=== PATIENT | male | born 1945 | race Caucasian/White ===

== ENCOUNTER 2018-09-05 09:08 | Day surgery (SDC) | payer MEDICARE, OTHER ==
[~2018-09-05 09:08] MED LIST: Buffered Lidocaine 0.9% SYRIN* 5 ML/SYR SYRINGE INTRADERM ONE; Dexamethasone TAB* 4 MG PO ONE; DiMENhydriNATE IV* 50 MG/ML VIAL IV PUSH PRN; Famotidine TAB* 20 MG PO ONE; Morphine VIAL* 4 MG/ML VIAL (1 ml vial) IV PRN; Naloxone* 0.4 MG/ML 1 ML VIAL IV PRN; Ondansetron TAB* 4 MG PO ONE; PROCHLORPERAZINE INJ 5 MG/ML 2 ML VIAL IV PRN; fentaNYL* 50 MCG/ML 2 ML VIAL (100 MCG VIAL) IV PRN
[2018-09-05] MEDS ORDERED: Ondansetron ODT TAB* 4 MG ONE (09:48)
[2018-09-05] MEDS ORDERED: Dexamethasone TAB* 4 MG ONE ×2 (09:48→09:54)
[2018-09-05] MEDS ORDERED: ceFAZolin 2 GM PREMIX in ORs 2 GM/50 ML BAG IVPB ONE (09:49)
[2018-09-05] MEDS ORDERED: Famotidine TAB* 20 MG ONE (09:49)
[2018-09-05] MEDS ORDERED: EPINEPHRINE 1 MG/ML 1 ML VIAL ONE (09:58)
[2018-09-05] MEDS ORDERED: Bupivacaine 0.25% EPI 200,000* 30 ML SDV ONE (09:58)
[2018-09-05] MEDS ORDERED: fentaNYL* 50 MCG/ML 2 ML VIAL (100 MCG VIAL) ONE ×3 (10:09→14:14)
[2018-09-05] MEDS ORDERED: KETAMINE HCL* 50 MG/ML 10 ML VIAL ONE (10:09)
[2018-09-05] MEDS ORDERED: Midazolam* 1 MG/ML 5 ML VIAL (5 MG) ONE (10:09)
[2018-09-05] MEDS ORDERED: Atracurium* 10 MG/ML 10 ML VIAL ONE (11:47)
[2018-09-05] MEDS ORDERED: Insulin REGULAR(*) 1 UNITS UNIT ONE (13:30)
[2018-09-05] MEDS ORDERED: oxyCODONE/Acetamin 5/325 MG* TAB ONE (14:01)
[2018-09-05] MEDS: oxyCODONE/Acetamin 5/325 MG* TAB PO PRN ×2 (14:05→14:16)
[2018-09-05] MEDS ORDERED: PROCHLORPERAZINE INJ 5 MG/ML 2 ML VIAL ONE (16:40)
[2018-09-05 18:45] VITALS: BP 131/60
--- NOTE | 2018-09-07 09:53 | OP ---
OPERATIVE NOTE: DATE OF OPERATION: 09/05/18 DATE OF : 43 SURGEON: Ismael Littlejohn MD CLAIMS SPECIALIST: THERESA Ramey A physician clinical assistant was required for the length of the procedure for assistance with positioning, instrumentation, and shoulder manipulation and closure. ANESTHESIOLOGIST: Dr. Royal Contreras. ANESTHESIA: General anesthesia, regional interscalene block anesthesia, local anesthesia consisting of 30 cc of 0.25% ropivacaine with epinephrine. PRE-OP DIAGNOSES: 1. Right shoulder subacromial bursitis and impingement. 2. Right shoulder AC joint osteoarthritis. 3. Right shoulder rotator cuff tendinitis, possible supraspinatus rotator cuff tendon tear. 4. Right shoulder possible biceps tendinosis. 5. Possible right shoulder adhesive capsulitis or capsulitis. POST-OP DIAGNOSES: 1. Right shoulder subacromial bursitis and subacromial impingement. 2. Right shoulder AC joint osteoarthritis. 3. Right shoulder rotator cuff tendinitis without rotator cuff tendon tear. 4. Right shoulder superior labrum tear, SLAP tear, SLAP tear type 4 with propagation of the tear in the superior labrum up into the biceps long head tendon. 5. Right shoulder capsulitis. OPERATIVE PROCEDURE: 1. Right shoulder examination and then manipulation under anesthesia. 2. Right shoulder arthroscopic lysis of adhesions, debridement and capsulotomy. 3. Right shoulder arthroscopic subacromial decompression. 4. Right shoulder arthroscopic distal clavicle resection. 5. Right shoulder arthroscopic long head biceps tenotomy. ANTIBIOTICS: Ancef 2 g IV. IV FLUIDS: 1500 cc crystalloid. SKIN TO SKIN TIME: 58 minutes. ARTHROSCOPIC FLUID UTILIZED: Eight bags each with 3 L for a total of 24 L. POSITIONING: Lateral decubitus. COMPLICATIONS: None. SPECIMEN: None. IMPLANTS: None. INDICATIONS FOR PROCEDURE: The patient is a 73-year-old man, left hand dominant , with diabetes mellitus type 2 and a cardiac history, who [place] , with a history of right shoulder pain since March 2018, with no antecedent trauma. The patient is having significant daytime and nighttime pain , pain with overhead use, pain awakening him at night. The patient had been treated previously by Dr. Cabello of [facility] with a full spectrum of non- operative management. The patient had been scheduled by Dr. Cabello for outpatient right shoulder surgery. He underwent a preoperative interscalene nerve block in preoperative holding. The patient reacted to this by becoming faint and he started sweating profusely and he felt that he turned green. The anesthesiologist and/or Dr. Cabello felt uncomfortable moving forward with surgery and so the surgery was canceled. Within 20 minutes of the block, the patient felt fine. The patient saw his hogshead stripper in clinic after the episode, who believed it to be a vasovagal response to the nerve block. The patient preferred to have the surgery done elsewhere given that experience and he saw Dr. Carranza who referred the patient to myself. I reviewed the history , exam and advanced imaging, and made the above mentioned diagnosis. I signed the patient up for surgery. If the biceps needed to be treated, the patient preferred a biceps release. I spoke to the patient and his about the recovery timeline given the variety of possible surgical procedures up to and including rotator cuff repair. DESCRIPTION OF THE PROCEDURE: The patient signed a written consent in preoperative holding. Operative extremity was marked in preoperative holding. The patient underwent an interscalene regional nerve block in preoperative holding by Dr. Contreras. Dr. Contreras was not convinced of the efficacy of the block, so recommended that I supplement it with some local anesthesia during the procedure. The patient was taken back to the operating room and placed supine on the operating room table. General anesthesia was induced. A mini time-out was performed so that I could do an exam under anesthesia of the right shoulder. Examination under anesthesia revealed forward flexion of 150 degrees , external rotation of 70 degrees, internal rotation of 60 degrees. Therefore, I decided to do a manipulation under anesthesia. There was audible and palpable crackling of the shoulder with this manipulation. I was able to obtain 180 degrees of forward flexion, 95 degrees of external and 70 degrees of internal rotation. The patient was next placed in the lateral decubitus position with an axillary roll placed, upton bag hardened, all bony prominences padded. Right shoulder placed in 15 pounds of longitudinal traction in the appropriate amount of forward flexion and abduction. The right shoulder was prepped. Surgical time- out was performed. I placed a spinal needle into the glenohumeral joint from posterior and infused 30 cc of normal saline. I established a posterior glenohumeral joint portal. I started my diagnostic arthroscopy. No articular cartilage damage. No visible undersurface rotator cuff tendon tear. I immediately noticed a superior labral tear that propagated up into the biceps tendon, long head. The joint still seemed somewhat tight. I established an anterior glenohumeral joint portal under direct visualization. I entered arthroscopic shaver from anterior and debrided some blood in the joint. I debrided the tissue in the rotator cuff interval. That appeared quite thickened. This opened up the joint. I visualized the SLAP type 4 tear and decided the biceps needed to be cut. I entered an arthroscopic scissors from anterior and cut the biceps just off its origin. I debrided the superior labrum with arthroscopic shaver. A small part of the superior labrum and a small part of the long head of the biceps had all torn off together. There was fortunately superior labrum intact. The long head biceps tendon retracted, but did not leave the glenohumeral joint. I debrided a little bit of the end of the biceps tendon. I next debrided with the arthroscopic shaver, some frayed labrum posteriorly and anteriorly. I held off on my capsulotomy for the time being. I removed fluid and instruments from the glenohumeral joint and placed a 5 mm plastic cannula anterior and a metal cannula posteriorly in the subacromial space. I should state that before I did this, I placed a spinal needle from outside the shoulder into the glenohumeral joint through an area of the rotator cuff tendon, supraspinatus, a component of the crescent of the rotator cuff that appeared weakened possibly, although had no clear tear whatsoever. I established a subacromial portal under direct visualization laterally. The patient had significant amount of bursitis in the subacromial space. I debrided this with an arthroscopic shaver. I visualized where I had placed my spinal needle for the supraspinatus tendon. There was no bursal-sided tear either. I had probed the supraspinatus with my arthroscopic probe. While the tissue did not look perfect, it never does in any 73-year-old. However, there was no even low-grade partial thickness tear on either the bursal or the undersurface of the supraspinatus rotator cuff tendon. I also created a posterolateral portal that allowed even better visualization of the rotator cuff tendon to confirm no tear. I next went about performing a subacromial decompression. I used an arthroscopic char to remove the significant amount of the inferior aspect of the anterior acromion. This flattened out the undersurface of the acromion nicely. I next moved to the AC joint. The patient had large spurs on either side of the AC joint. With an arthroscopic char, I removed a large osteophyte on the acromial side of the AC joint. I then removed at least 8 mm of the distal end of the clavicle. I was particularly aggressive with this. I clearly could see all 4 corners of the distal end of the clavicle fully released. After having done my subacromial decompression and distal clavicle resection and extensive bursectomy, I decided to return to the glenohumeral joint. Given the patient's stiffness under anesthesia and the relatively thickened appearance of his capsule, I decided to do a capsulotomy. I asked for the hook tip cautery device. I used it to release capsule, posterior and then inferior, working from the posterior portal. I then released inferior and anteroinferior from the anterior portal. I removed fluid and instruments from the shoulder. I closed skin incisions with [id number] 12 stitches using nylon 3-0 suture. I next placed a local anesthetic into the subcutaneous tissues about the skin incisions as well as into the subacromial space for a total of 30 cc of 0.25% ropivacaine with epinephrine. Xeroform, 4x4's, ABD, foam tape. The patient was placed in a sling. Cooling unit. DISPOSITION: The patient was discharged home when medically stable. The patient will follow up in 10 to 14 days postoperatively. He was to receive Percocet as needed for pain control. He will continue his aspirin 81 mg p.o. daily that should help with some level DVT prophylaxis. The patient will start physical therapy immediately. [id number]/[facility] #: [id number] [facility]
== END 2018-09-05 18:53 | disposition home or self-care (01) ==
LOC: OR 09:08
PROVIDERS: ATTEND Orthopaedic Surgery
DX: M75.41 Impingement syndrome of right shoulder (principal); M75.01 Adhesive capsulitis of right shoulder; M19.011 Primary osteoarthritis, right shoulder; M24.111 Other articular cartilage disorders, right shoulder; M25.511 Pain in right shoulder; G89.18 Other acute postprocedural pain; E11.9 Type 2 diabetes mellitus without complications; J44.9 Chronic obstructive pulmonary disease, unspecified; Z87.891 Personal history of nicotine dependence; I25.10 Atherosclerotic heart disease of native coronary artery without angina pectoris; Z95.1 Presence of aortocoronary bypass graft
CPT/HCPCS: A9270-GY; J0690; J0780; J2250; J3010; J8540

== ENCOUNTER 2019-12-28 01:44 | Inpatient (IN) | payer MEDICARE ==
--- OUTSIDE RECORDS SUMMARY | 2019-12-28 01:50 | XMS REPORT | Summary of Care ---
:1945 Author Organization [facility] Address [address] [address] Care Team Providers Name Role Phone AmelieLuis Ping Primary Care Provider Reason for Visit Reason Comments Follow Up URI 9 days ago, still not feeling well Encounter Details Date Type Department Care Team Description 11/11/2019 Office Visit [place] Liane Doss, Chronic obstructive pulmonary disease with acute exacerbation (HCC) (Primary Dx); Practice [facility] History of tobacco use; [address] [facility] Uncontrolled diabetes mellitus type 2 without complications (HCC) [place] [address] [place] [address] [phone] Allergies Active Allergy Reactions Severity Noted Date Comments Codeine 08/24/2009 Propoxyphene Napsylate 08/24/2009 documented as of this encounter (statuses as of 11/11/2019) Medications Medication Sig Dispensed Refills Start Date End Date Status aspirin 81 MG Oral Take 1 Tab by 30 Tab 0 12/07/2012 Active Tab EC mouth DAILY. Glucose Blood In 1 Each by In 100 Each 5 02/08/2016 Active Vitro Strip Vitro route DAILY. E11.9 One Touch Verio IQ glipiZIDE (GLUCOTROL) Take 1 Tab by 180 Tab 4 06/03/2018 Active 5 MG Oral Tab mouth TWICE DAILY. Ibuprofen (ADVIL) 200 Take by mouth. 0 Active MG Oral Cap lisinopril (PRINIVIL, Take 1 Tab by 90 Tab 5 12/17/2018 12/17/2019 Active ZESTRIL) 20 MG Oral mouth DAILY. Take Tab 1 tablet daily. atorvastatin TAKE 1 TABLET BY 90 Tab 3 12/29/2018 Active (LIPITOR) 80 MG Oral MOUTH EVERY DAY TabIndications: Coronary artery disease involving knik coronary artery of knik heart without angina pectoris albuterol HFA Take 2 Puffs by 1 Inhaler 5 12/29/2018 Active (VENTOLIN) 108 (90 inhalation EVERY Base) MCG/ACT FOUR HOURS Inhalation Aero Soln NEEDED (short of breath). torsemide (DEMADEX) Take 1 Tab by 30 Tab 5 02/02/2019 Active 10 MG Oral mouth DAILY TabIndications: Acute NEEDED (Leg on chronic diastolic swelling, CHF (congestive heart increased failure) (HCC) shortness of breath.). spironolactone Take 1 Tab by 90 Tab 3 02/02/2019 Active (ALDACTONE) 25 MG mouth DAILY. Oral TabIndications: Acute on chronic diastolic CHF (congestive heart failure) (HCC) Sildenafil Citrate Take 1 Tab by 15 Tab 5 02/16/2019 Active 100 MG Oral Tab mouth NEEDED (sex). trazodone (DESYREL) TAKE 1-3 TABLETS 90 Tab 3 04/27/2019 Active 50 MG Oral Tab BY MOUTH EVERY DAY AT BEDTIME NEEDED metoprolol succinate Take 1 Tab by 90 Tab 3 10/21/2019 Active (TOPROL XL) 25 MG mouth DAILY. Oral TABLET SR 24 HRIndications: Coronary artery disease involving knik coronary artery of knik heart without angina pectoris Benzonatate 200 MG Take 1 Cap by 30 Cap 1 11/02/2019 Active Oral Cap mouth EVERY SIX HOURS NEEDED (cough). amoxicillin-clavulani Take 1 Tab by 20 Tab 0 11/11/2019 11/21/2019 Active c acid (AUGMENTIN) mouth TWICE DAILY 875-125 MG Oral for 10 days. TabIndications: Chronic obstructive pulmonary disease with acute exacerbation (HCC) predniSONE Take 1 Tab by 10 Tab 0 11/11/2019 11/16/2019 Active (DELTASONE) 20 MG mouth TWICE DAILY Oral TabIndications: for 5 days. Chronic obstructive pulmonary disease with acute exacerbation (HCC) documented as of this encounter (statuses as of 11/11/2019) Active Problems Problem Noted Date Sacroiliitis 03/03/2018 Controlled type 2 diabetes mellitus without complication, without 02/08/2016 long-term current use of insulin CAD (coronary artery disease) 12/17/2012 Overview: S/p CABG [facility] 11/2012 S/P CABG x 5 12/02/12 12/04/2012 Essential hypertension, benign 08/27/2012 COPD (chronic obstructive pulmonary disease) 08/27/2012 Overview: Ex smoker, quit 2002, smoked 37 years 2 pack per day= 74 packyr PAD (peripheral artery disease) 08/27/2012 Overview: S/p left iliac stent placement 2008 [place], [place] vascular surgery Obesity, unspecified 08/24/2009 Overview: This patient's BMI has been calculated and is above average, and BMI management plan is completed. General patient education discussion including: obesity- related excess mortality, weight loss link to reduction of risk factors for cardiac and other diseases, importance of long- term maintenance treatment in weight loss documented as of this encounter (statuses as of 11/11/2019) Resolved Problems Problem Noted Date Resolved Date Uncontrolled type 2 diabetes mellitus without complication, 04/14/20192018 without long-term current use of insulin Tear of right rotator cuff 06/11/2018 01/27/2019 Overview: Added automatically from request for surgery [id number] Trochanteric bursitis of right hip 03/24/2018 12/17/2018 Bursitis of right hip 03/03/2018 11/02/2019 NSTEMI (non-ST elevated myocardial infarction) 12/02/12 12/17/20122017 Overview: CABG 12/02/12 OPERATIVE PROCEDURE: Coronary artery bypass graft grafts times five with left internal mammary artery to the left anterior descending and sequential saphenous vein graft to the right posterolateral branch, second marginal, first marginal, and diagonal using cardiopulmonary bypass and transesophageal echocardiogram. Acute blood loss anemia 12/17/2012 05/12/2013 Diverticulitis, colon 08/27/2012 12/17/2018 Overview: Left segmental sigmoid resection [facility] 1994 [facility] Recurrence yearly ciprofloxacin prescription empirically Colonoscopy negative 2010 documented as of this encounter (statuses as of 11/11/2019) Immunizations Name Administration Dates Next Due Influenza (IM) Preservative Free 08/21/2018, 07/26/2018, 08/25/2017 Influenza Vaccine High Dose 09/20/2019, 10/11/2015, 09/20/2014 Influenza Vaccine Whole 10/02/2007 PNEUMOCOCCAL POLYSACCHARIDE VACCINE 08/27/2012, 08/25/2009 TDAP Vaccine 01/20/2009 documented as of this encounter Social History Tobacco Use Types Packs/Day Years Used Date Former Smoker Cigarettes 2 40 Quit: 11/30/1997 Smokeless Tobacco: Never Used Alcohol Use Drinks/Week oz/Week Comments Yes 6 Standard drinks or equivalent 6.0 beer Sex Assigned at Date Recorded Not on file Job Start Date Occupation Industry Not on file Not on file Not on file Travel History Travel Start Travel End No recent travel history available. documented as of this encounter Last Filed Vital Signs Vital Sign Reading Time Taken Comments Blood Pressure 150/74 11/11/2019 10:38 AM EST Pulse 70 11/11/2019 10:38 AM EST Temperature 36.9 11/11/2019 10:38 AM EST C (98.4 F) Respiratory Rate - - Oxygen Saturation 99% 11/11/2019 10:38 AM EST Inhaled Oxygen Concentration - - Weight 88.5 kg (195 lb) 11/11/2019 10:38 AM EST Height 160 cm (5' 3") 11/11/2019 10:38 AM EST Body Mass Index 34.54 11/11/2019 10:38 AM EST documented in this encounter Patient Instructions Patient InstructionsLiane Fritz FNP - 11/11/2019 10:40 AM ESTRest Fluids Steam may help loosen congestion Mucinex thins mucus - Can use Delsym for cough Antibiotic as directed Prednisone twice a day with food salt water gargle as needed for sore/scratchy throat Call if symptoms fail to resolve or worsen documented in this encounter Progress Notes Liane Fritz FNP - 11/11/2019 10:40 AM EST PATIENT: Fred Cameron : 1945 DATE OF SERVICE: 11/11/2019 CHIEF COMPLAINT: Chief Complaint Patient presents with Follow Up URI 9 days ago, still not feeling well Subjective HISTORY OF PRESENT ILLNESS: Fred Cameron is a 74-y.o. male. HPI Sen 11/02/19 - Dx viral URI - put on Prednisone, R+Tessalon, Mucinex - still congested - no improvement at all. Cough worse at night. States not using inhaler - too expensive Past Medical History: Diagnosis Date Cancer (HCC) Diverticulitis S/P partial colectomy Heart disease, unspecified Nov 2012 NSTEMI Hypertension Left foot pain Left hip pain Obesity (BMI 30.0-39.9) 08/24/2009 Unspecified essential hypertension Family History Problem Relation Age of Onset Cancer Mother cervical Emphysema Father Anesth Problems No family history Arthritis No family history Clotting Disorder No family history Diabetes No family history Heart Disease No family history Hypertension No family history Kidney Disease No family history Thyroid Disease No family history Current Outpatient Medications Medication Sig albuterol HFA (VENTOLIN) 108 (90 Base) MCG/ACT Inhalation Aero Soln Take 2 Puffs by inhalation EVERY FOUR HOURS NEEDED (short of breath). amoxicillin-clavulanic acid (AUGMENTIN) 875-125 MG Oral Tab Take 1 Tab by mouth TWICE DAILY for 10 days. aspirin 81 MG Oral Tab EC Take 1 Tab by mouth DAILY. atorvastatin (LIPITOR) 80 MG Oral Tab TAKE 1 TABLET BY MOUTH EVERY DAY Benzonatate 200 MG Oral Cap Take 1 Cap by mouth EVERY SIX HOURS NEEDED (cough). glipiZIDE (GLUCOTROL) 5 MG Oral Tab Take 1 Tab by mouth TWICE DAILY. Glucose Blood In Vitro Strip 1 Each by In Vitro route DAILY. E11.9 One Touch Verio IQ Ibuprofen (ADVIL) 200 MG Oral Cap Take by mouth. lisinopril (PRINIVIL, ZESTRIL) 20 MG Oral Tab Take 1 Tab by mouth DAILY. Take 1 tablet daily. metoprolol succinate (TOPROL XL) 25 MG Oral TABLET SR 24 HR Take 1 Tab by mouth DAILY. predniSONE (DELTASONE) 20 MG Oral Tab Take 1 Tab by mouth TWICE DAILY for 5 days. Sildenafil Citrate 100 MG Oral Tab Take 1 Tab by mouth NEEDED (sex). spironolactone (ALDACTONE) 25 MG Oral Tab Take 1 Tab by mouth DAILY. torsemide (DEMADEX) 10 MG Oral Tab Take 1 Tab by mouth DAILY NEEDED ( Leg swelling, increased shortness of breath.). trazodone (DESYREL) 50 MG Oral Tab TAKE 1-3 TABLETS BY MOUTH EVERY DAY AT BEDTIME NEEDED No current facility-administered medications for this visit. Facility-Administered Medications Ordered in Other Visits Medication dextrose injection 50 % FentaNYL (PF) (SUBLIMAZE) injection (PF) ropivacaine (NAROPIN) injection Allergies Allergen Reactions Codeine Darvon-N [Propoxyphene Napsylate] Social History Socioeconomic History Marital status: Spouse name: Not on file Number of children: Not on file Years of education: Not on file Highest education level: Not on file Occupational History Not on file Social Needs Financial resource strain: Not on file Food insecurity Worry: Not on file Inability: Not on file Transportation needs Medical: Not on file Non-medical: Not on file Tobacco Use Smoking status: Former Smoker Packs/day: 2.00 Years: 40.00 Pack years: 80.00 Types: Cigarettes Last attempt to quit: 11/30/1997 Years since quittin.9 Smokeless tobacco: Never Used Substance and Sexual Activity Alcohol use: Yes Alcohol/week: 6.0 standard drinks Types: 6 Standard drinks or equivalent per week Comment: beer Drug use: No Sexual activity: Yes Partners: Female Lifestyle Physical activity Days per week: Not on file Minutes per session: Not on file Stress: Not on file Relationships Social connections Talks on phone: Not on file Gets together: Not on file Attends sabianist service: Not on file Active member of club or organization: Not on file Attends meetings of clubs or organizations: Not on file Relationship status: Not on file Intimate partner violence Fear of current or ex partner: Not on file Emotionally abused: Not on file Physically abused: Not on file Forced sexual activity: Not on file Other Topics Concern Back Care Not Asked Bike Helmet Not Asked Blood Transfusions Not Asked Caffeine Concern Not Asked Exercise Yes Hobby Hazards Not Asked International Travel Not Asked Service Not Asked Occupational Exposure Not Asked Seat Belt Not Asked Self-Exams Not Asked Sleep Concern Not Asked Special Diet No Stress Concern No Weight Concern Yes Comment: goal wt 150 lbs Social History Narrative 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 Has 3 children and 6 grandkids . Lives in [facility] REVIEW OF SYSTEMS: Review of Systems Constitutional: Positive for malaise/fatigue. Negative for chills and fever. HENT: Positive for congestion. Negative for ear pain and sore throat. Respiratory: Positive for cough, sputum production, shortness of breath and wheezing. Cardiovascular: Negative for chest pain and palpitations. Neurological: Negative for dizziness and headaches. Objective PHYSICAL EXAM: VITALS: BP (!) 150/74 | Pulse 70 | Temp 98.4 F (36.9 C) (Tympanic) | Ht 5' 3" (1.6 m) |Wt 195 lb (88.5 kg) | SpO2 99% | BMI 34.54 kg/m Body mass index is 34.54 kg/m. Physical Exam Vitals signs and nursing note reviewed. Constitutional: General: He is not in acute distress. Appearance: He is obese. HENT: Head: Normocephalic and atraumatic. Right Ear: Tympanic membrane normal. Left Ear: Tympanic membrane normal. Nose: Nose normal. Mouth/Throat: Lips: [place]. Mouth: Mucous membranes are moist. Pharynx: Oropharynx is clear. Uvula midline. Eyes: Extraocular Movements: Extraocular movements intact. Conjunctiva/sclera: Conjunctivae normal. Pupils: Pupils are equal, round, and reactive to light. Neck: Musculoskeletal: Normal range of motion. No neck rigidity. Cardiovascular: Rate and Rhythm: Normal rate and regular rhythm. Pulmonary: Effort: Pulmonary effort is normal. No respiratory distress. Breath sounds: Wheezing present. No rhonchi or rales. Chest: Chest wall: No tenderness. Lymphadenopathy: Cervical: No cervical adenopathy. Skin: General: Skin is warm and dry. Capillary Refill: Capillary refill takes 2 to 3 seconds. Coloration: Skin is not cyanotic or pale. Neurological: Mental Status: He is alert and oriented to person, place, and time. Gait: Gait normal. Psychiatric: Mood and Affect: Mood normal. Behavior: Behavior normal. Behavior is cooperative. ASSESSMENT / IMPRESSION: ICD-9-CM ICD-10-CM 1. Chronic obstructive pulmonary disease with acute exacerbation ([facility]) 491.21 J44.1 amoxicillin-clavulanic acid (AUGMENTIN) 875-125 MG Oral Tab predniSONE (DELTASONE) 20 MG Oral Tab 2. History of tobacco use V15.82 Z87.891 no longer smoking 3. Uncontrolled diabetes mellitus type 2 without complications ([facility]) 250.02 E11.65 has not been checking BG - last A1c done March 2019 - 7.3 Plan Rest Fluids Steam may help loosen congestion Mucinex thins mucus - Can use Delsym for cough Antibiotic as directed Prednisone twice a day with food salt water gargle as needed for sore/scratchy throat Call if symptoms fail to resolve or worsen Author: CLAUDIO Thornton 11/11/2019 10:58 documented in this encounter Plan of Treatment Date Type Specialty Care Team Description 04/19/2020 Orders Only Cardiology 04/28/2020 Office Visit Cardiology Ismael Marinelli MD [address] [place] [address] [phone] Health Maintenance Due Date Last Done Comments ZOSTER IMMUNIZATION SERIES 1994 (1 of 2) PNEUMOCOCCAL 65+YRS (2 of 2 08/27/2013 08/27/2012, 08/25/2009 - PCV13) MEDICARE ANNUAL WELLNESS 02/07/2017 02/08/2016, 02/08/2016 VISIT Diabetic Eye Exam 05/28/2017 05/28/2016 FOOT EXAM 06/26/2018 06/26/2017, 06/26/2017, 02/08/2016, Additional history exists DTaP/Tdap/Td Vaccines (2 - 01/20/2019 01/20/2009 Tdap) HEMOGLOBIN A1C 07/15/2019 04/14/2019, 12/17/2018, 08/28/2018, Additional history exists DEPRESSION SCREENING 12/17/2019 12/17/2018 LIPID DISORDER SCREENING 10/21/2020 10/21/2019, 12/29/2018, 05/22/2018, Additional history exists FALL RISK ASSESSMENT 11/02/2020 11/02/2019, 11/02/2019 Colonoscopy 08/27/2021 08/27/2011 AAA SCREENING/SURVEILLANCE Completed 08/27/2017 INFLUENZA VACCINE Completed 09/20/2019, 08/21/2018, 07/26/2018, Additional history exists HEPATITIS A IMMUNIZATION Aged Out No longer eligible SERIES based on patient's age to complete this topic HPV IMMUNIZATION SERIES Aged Out No longer eligible based on patient's age to complete this topic MENINGOCOCCAL VACCINE IMM Aged Out No longer eligible based on patient's age to complete this topic documented as of this encounter Goals Goal Patient Goal Associated Recent Patient-Stated? Author Type Problems Progress Blood Pressure Blood Pressure 150/74 No [place], < 140/90 (11/11/2019 Luis Feng, 10:38 AM EST) Note: This is an individualized treatment (blood pressure) goal for Fred Cameron: Displayed above (on the left) is your goal for blood pressure control. Your most recent blood pressure is also shown above, on the right. You should try to achieve blood pressures that are lower than your goal listed above (on the left). Weight increase vs. 18 mo CHF 16 (11/11/2019 10:38 AM EST) Luis Fu MD min (lbs) < 5 Note: This is an individualized treatment (congestive heart failure, CHF) goal for Fred Cameron: Displayed above (on the right) is how many pounds you are in excess of your lowest weight over the past 18 months. Note that lower numbers are better. Excessive weight gain often indicates fluid reten tion and worsening heart failure. You should contact your doctor immediately if the above number is too high (above your goal, the number on the left). Glycohemoglobin A1c < 7.0 Diabetes 7.3 (04/14/2019 9:52 AM Luis Fu EDTKhadijah LEE Note: This is an individualized treatment (diabetes control, HgbA1C) goal for Fred Cameron: Displayed above is your progress towards your HgbA1C goal. Your goal is shown above (on the left); your most recent HgbA1C is shown on the right. Note that lower numbers are better. Weight loss vs. 18 mo Lifestyle 10 (11/11/2019 10:38 AM Luis Fu MD max (lbs) >= 10 EST) Note: This is an individualized lifestyle goal for Fred Cameron: Your body mass index (BMI) is more than 30. You should lose weight. A reasonable starting goal is to lose 10 pounds. Displayed above is how many pounds you have lost thus far towards your 10 pound weight loss goal. Keep immunizations current Lifestyle Luis uF MD Note: This is an individualized lifestyle goal for Fred Cameron: Please be sure to keep up-to-date on recommended immunizations. For example, this would include a yearly influenza vaccine. Immunization status can be seen by looking at the Health Maintenance sections of your [facility], Plan of Care, and any After Visit Summaries. Consume a [id number] diet Lifestyle Luis Fu MD Note: This is an individualized lifestyle goal for Fred Cameron: Please do not add additional salt to your food. Additional salt may lead to fluid retention and worsen your congestive heart failure. Take all prescribed medications as Self-management No [place], Luis R , MD directed Note: This is an individualized self-management goal for Fred Cameron: Please take all prescribed medications as directed. 1. Do not skip doses. If you cannot afford your medications, talk with your doctor. 2. Use a pill reminder system such as a pill box if needed. Your pharmacist can help you with this. 3. Contact your Pharmacy 5 days before your medication runs out. If you cannot take your medications for any reasons, talk with your doctor. 4. Please bring all of your medication bottles and inhalers (or a list of all your medications/inhalers) with you to every visit. Potential barriers to meeting all of your care plan goals will continue to be addressed on an ongoing basis. Check your weight daily Self-management Luis Fu MD Note: This is an individualized self-management goal for Fred Cameron: Please check your weight daily. Refer to the accompanying CHF treatment goal and call your doctor immediately for further instructions on how to respond to unexpected weight gain. documented as of this encounter Results Not on filedocumented in this encounter Visit Diagnoses Diagnosis Chronic obstructive pulmonary disease with acute exacerbation (HCC) Obstructive chronic bronchitis with exacerbation History of tobacco use Personal history of tobacco use, presenting hazards to health Uncontrolled diabetes mellitus type 2 without complications (HCC) documented in this encounter Insurance Payer Benefit Plan / Subscriber ID Effective Dates Phone Address Type Group AETNA MEDICARE AETNA MEDICARE xxxxxxxx 2017-Present [employer] ADVANTAGE ADVANTAGE Guarantor Name Account Type Relation to Date of Phone Billing Patient Address Fred Cameron Personal/Family 1945 [address] (Home) [place], [place] [phone] (Work) documented as of this encounter
--- OUTSIDE RECORDS SUMMARY | 2019-12-28 01:50 | XMS REPORT | Summary of Care ---
:1945 Author Organization [facility] Address [address] [address] Care Team Providers Name Role Phone AmelieLuis Ping Primary Care Provider Reason for Visit Reason Comments Cough productive Encounter Details Date Type Department Care Team Description 11/27/2019 Office Visit [facility] Liane Fritz, Persistent cough for 3 weeks or longer (Primary Dx); Practice [employer] Other emphysema (HCC) [address] [place] [address] [place] [address] [phone] Allergies Active Allergy Reactions Severity Noted Date Comments Codeine 08/24/2009 Propoxyphene Napsylate 08/24/2009 documented as of this encounter (statuses as of 11/27/2019) Medications Medication Sig Dispensed Refills Start End Date Status Date aspirin 81 MG Oral Take 1 Tab by 30 Tab 0 Active Tab EC mouth DAILY. 3 Glucose Blood In 1 Each by In 100 Each 5 Active Vitro Strip Vitro route 6 DAILY. E11.9 One Touch Verio IQ glipiZIDE Take 1 Tab by 180 Tab 4 Active (GLUCOTROL) 5 MG mouth TWICE 8 Oral Tab DAILY. Ibuprofen (ADVIL) Take by mouth. 0 Active 200 MG Oral Cap lisinopril Take 1 Tab by 90 Tab 5 12/17/19 Active (PRINIVIL, ZESTRIL) mouth DAILY. 9 20 20 MG Oral Tab Take 1 tablet daily. atorvastatin TAKE 1 TABLET 90 Tab 3 Active (LIPITOR) 80 MG BY MOUTH EVERY 9 Oral DAY TabIndications: Coronary artery disease involving ekwok coronary artery of ekwok heart without angina pectoris torsemide (DEMADEX) Take 1 Tab by 30 Tab 5 Active 10 MG Oral mouth DAILY 9 TabIndications: NEEDED (Leg Acute on chronic swelling, diastolic CHF increased (congestive heart shortness of failure) ([facility]) breath.). spironolactone Take 1 Tab by 90 Tab 3 Active (ALDACTONE) 25 MG mouth DAILY. 9 Oral TabIndications: Acute on chronic diastolic CHF (congestive heart failure) ([facility]) Sildenafil Citrate Take 1 Tab by 15 Tab 5 Active 100 MG Oral Tab mouth NEEDED 9 (sex). metoprolol Take 1 Tab by 90 Tab 3 Active succinate (TOPROL mouth DAILY. 9 XL) 25 MG Oral TABLET SR 24 HRIndications: Coronary artery disease involving ekwok coronary artery of ekwok heart without angina pectoris Benzonatate 200 MG Take 1 Cap by 30 Cap 1 Active Oral Cap mouth EVERY SIX 9 HOURS NEEDED (cough). trazodone (DESYREL) TAKE 1-3 90 Tab 3 Active 50 MG Oral Tab TABLETS BY 9 MOUTH EVERY DAY AT BEDTIME NEEDED albuterol HFA Take 2 Puffs by 1 Inhaler 5 Active (VENTOLIN) 108 (90 inhalation 0 Base) MCG/ACT EVERY FOUR Inhalation Aero HOURS NEEDED SolnIndications: (short of Other emphysema breath). ([facility]) albuterol HFA Take 2 Puffs by 1 Inhaler 5 11/27/19 Discontinued (VENTOLIN) 108 (90 inhalation 9 20 (Reorder) Base) MCG/ACT EVERY FOUR Inhalation Aero HOURS NEEDED Soln (short of breath). documented as of this encounter (statuses as of 11/27/2019) Active Problems Problem Noted Date Sacroiliitis 03/03/2018 Controlled type 2 diabetes mellitus without complication, without 02/08/2016 long-term current use of insulin CAD (coronary artery disease) 12/17/2012 Overview: S/p CABG [facility] 11/2012 S/P CABG x 5 12/02/12 12/04/2012 Essential hypertension, benign 08/27/2012 COPD (chronic obstructive pulmonary disease) 08/27/2012 Overview: Ex smoker, quit 2002, smoked 37 years 2 pack per day= 74 packyr PAD (peripheral artery disease) 08/27/2012 Overview: S/p left iliac stent placement 2008 [place], [place] vascular surgery Obesity, unspecified 08/24/2009 Overview: This patient's BMI has been calculated and is above average, and BMI management plan is completed. General patient education discussion including: obesity- related excess mortality, weight loss link to reduction of risk factors for cardiac and other diseases, importance of long- term maintenance treatment in weight loss documented as of this encounter (statuses as of 11/27/2019) Resolved Problems Problem Noted Date Resolved Date Uncontrolled type 2 diabetes mellitus without complication, 04/14/20192018 without long-term current use of insulin Tear of right rotator cuff 06/11/2018 01/27/2019 Overview: Added automatically from request for surgery [id number] Trochanteric bursitis of right hip 03/24/2018 12/17/2018 [...] 08/27/2012 12/17/2018 Overview: Left segmental sigmoid resection [facility] Recurrence yearly ciprofloxacin prescription empirically Colonoscopy negative 2010 documented as of this encounter (statuses as of 11/27/2019) Immunizations Name Administration Dates Next Due Influenza [...] Sign Reading Time Taken Comments Blood Pressure 154/76 11/27/2019 8:07 AM EST Pulse 84 11/27/2019 8:07 AM EST Temperature - - Respiratory Rate - - Oxygen Saturation 94% 11/27/2019 8:07 AM EST Inhaled Oxygen Concentration - - Weight 87.5 kg (193 lb) 11/27/2019 8:07 AM EST Height - - Body Mass Index 34.19 11/11/2019 10:38 AM EST documented in this encounter Patient Instructions Patient InstructionsLiane Fritz FNP - 11/27/2019 8:00 AM ESTRest Fluids Steam may help loosen congestion Mucinex thins mucus salt water gargle as needed for sore/scratchy throat Call if symptoms fail to resolve or worsen Use Albuterol twice a day for next 4-5 days then as needed documented in this encounter Progress Notes Liane Fritz FNP - 11/27/2019 8:00 AM EST PATIENT: Fred Cameron : 1945 DATE OF SERVICE: 11/27/2019 CHIEF COMPLAINT: Chief Complaint Patient presents with Cough productive Subjective HISTORY OF PRESENT ILLNESS: Fred Cameron is a 74-y.o. male. HPI Ongoing cough - not using inhaler. No increased SOB. Has been treated twice with prednisone and antibiotic - is using Mucinex Past Medical History: Diagnosis Date Cancer (HCC) [...] EVERY FOUR HOURS NEEDED (short of breath). aspirin 81 MG Oral Tab EC Take [...] HR Take 1 Tab by mouth DAILY. 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 Has 3 children and 6 grandkids . Lives in [facility] REVIEW OF SYSTEMS: Review of Systems Constitutional: Negative for chills, fever and malaise/fatigue. HENT: Negative for congestion and sore throat. Respiratory: Positive for cough and sputum production. Negative for shortness of breath and wheezing. Musculoskeletal: Positive for myalgias. Objective PHYSICAL EXAM: VITALS: BP (!) 154/76 | Pulse 84 | Wt 193 lb (87.5 kg) | SpO2 94% | BMI 34.19 kg/m Body mass index is 34.19 kg/m. Physical Exam Vitals signs and nursing note reviewed. Constitutional: General: He is not in acute distress. Appearance: He is not ill-appearing. Comments: BP slightly elevated HENT: Head: Normocephalic and atraumatic. Nose: No rhinorrhea. Eyes: Extraocular Movements: Extraocular movements intact. Conjunctiva/sclera: Conjunctivae normal. Pupils: Pupils are equal, round, and reactive to light. Neck: Musculoskeletal: Normal range of motion. No neck rigidity. Cardiovascular: Rate and Rhythm: Normal rate and regular rhythm. Pulmonary: Effort: Pulmonary effort is normal. No respiratory distress. Breath sounds: No wheezing, rhonchi or rales. Lymphadenopathy: Cervical: No cervical adenopathy. Skin: General: Skin is warm. Capillary Refill: Capillary refill takes 2 to 3 seconds. Coloration: Skin is not cyanotic or pale. Neurological: Mental Status: He is alert and oriented to person, place, and time. Psychiatric: Mood and Affect: Mood normal. Behavior: Behavior normal. Behavior is cooperative. ASSESSMENT / IMPRESSION: ICD-9-CM ICD-10-CM 1. Persistent cough for 3 weeks or longer 786.2 R05 XR CHEST 2 VIEW PA AND LATERAL (STANDARD) 2. Other emphysema (HCC) 492.8 J43.8 albuterol HFA (VENTOLIN) 108 (90 Base) MCG/ ACT Inhalation Aero Soln Plan Rest Fluids Steam may help loosen congestion Mucinex thins mucus salt water gargle as needed for sore/scratchy throat Call if symptoms fail to resolve or worsen Use Albuterol twice a day for next 4-5 days then as needed CXR done - await report Author: CLAUDIO Thornton 11/27/2019 08:45 documented in this encounter Plan of Treatment Date Type Specialty Care Team Description 04/19/2020 Orders Only Cardiology 04/28/2020 Office Visit Cardiology Ismael Marinelli MD [address] [place] [address] [phone] Name Type Priority Associated Diagnoses Date/Time XR CHEST 2 VIEW PA Imaging Routine Persistent cough for 3 11/27/2019 8:31 AM EST AND LATERAL weeks or longer (STANDARD) Name Type Priority Associated Diagnoses Order Schedule XR CHEST 2 VIEW PA Imaging Routine Persistent cough for 3 1 Occurrences starting AND LATERAL weeks or longer 11/27/2019 until (STANDARD) 11/26/2020 Health Maintenance Due Date Last Done Comments [...] Type Problems Progress Blood Pressure Blood Pressure 154/76 No Amelie, < 140/90 (11/27/2019 Luis Feng, 8:07 AM EST) Note: This is an individualized treatment (blood pressure) goal for Fred Cameron: Displayed above (on the left) is your goal for blood pressure control. Your most recent blood pressure is also shown above, on the right. You should try to achieve blood pressures that are lower than your goal listed above (on the left). Weight increase vs. 18 mo CHF 13 (11/27/2019 8:07 AM EST) Luis Fu MD min (lbs) [...] better. Weight loss vs. 18 mo Lifestyle 12 (11/27/2019 8:07 AM Luis Fu MD max (lbs) >= [...] loss goal. Keep immunizations current Lifestyle Luis Fu MD Note: This is an individualized lifestyle goal for Fred Cameron: Please be sure to keep up-to-date on recommended immunizations. For example, this would include a yearly influenza vaccine. Immunization status can be seen by looking at the Health Maintenance sections of your e[facility], Plan of Care, and any After Visit Summaries. Consume a ku-[id number]-yzuo diet Lifestyle Luis Fu MD Note: This is an individualized lifestyle goal for Fred Cameron: Please do not add additional salt to your food. Additional salt may lead to fluid retention and worsen your congestive heart failure. Take all prescribed medications as Self-management Luis Fu MD directed Note: This is an individualized [...] filedocumented in this encounter Visit Diagnoses Diagnosis Persistent cough for 3 weeks or longer Other emphysema (HCC) Other emphysema documented in this encounter Insurance Payer Benefit Plan / Subscriber ID Effective Dates Phone Address Type Group AETNA MEDICARE AETNA MEDICARE xxxxxxxx 2017-Present [employer] ADVANTAGE ADVANTAGE Guarantor Name Account Type Relation to Date of Phone Billing Patient Address Fred Cameron Personal/Family 1945 [address] (Home) [place], [place] [phone] (Work) documented as of this encounter"
--- OUTSIDE RECORDS SUMMARY | 2019-12-28 01:50 | XMS REPORT | Summary of Care ---
:1945 Author Organization [facility] Address [address] [address] Care Team Providers Name Role Phone Luis Kinsey Primary Care Provider Reason for Visit Reason Comments Sore Throat -1day Cough productive, yellow mucos -1 day Encounter Details Date Type Department Care Team Description 11/02/2019 Office Visit [place] [facility] Luis Kinsey, Controlled type 2 diabetes mellitus without complication, without long-term current use of insulin (HCC) (Primary Dx); Medicine COPD with acute exacerbation (HCC); [address] [place] [address] [place] [address] [phone] Allergies Active Allergy Reactions Severity Noted Date Comments Codeine 08/24/2009 Propoxyphene Napsylate 08/24/2009 documented as of this encounter (statuses as of 11/02/2019) Medications Medication Sig Dispensed Refills Start Date [...] EVERY DAY TabIndications: Coronary artery disease involving lumbee coronary artery of lumbee heart without angina pectoris albuterol HFA Take [...] SR 24 HRIndications: Coronary artery disease involving lumbee coronary artery of lumbee heart without angina pectoris predniSONE Take 2 Tabs by 10 Tab 0 11/02/2019 11/07/2019 Active (DELTASONE) 20 MG mouth DAILY for 5 Oral Tab days. Benzonatate 200 MG Take 1 Cap by 30 Cap 1 11/02/2019 Active Oral Cap mouth EVERY SIX HOURS NEEDED (cough). documented as of this encounter (statuses as of 11/02/2019) Active Problems Problem Noted Date Sacroiliitis 03/03/2018 Controlled type 2 diabetes mellitus without complication, without 02/08/2016 long-term current use of insulin CAD (coronary artery disease) 12/17/2012 Overview: S/p CABG [facility] 11/2012 S/P CABG x 5 12/02/12 12/04/2012 Essential hypertension, benign 08/27/2012 COPD (chronic obstructive pulmonary disease) 08/27/2012 Overview: Ex smoker, quit 2002, smoked 37 years 2 pack per day= 74 packyr PAD (peripheral artery disease) 08/27/2012 Overview: S/p left iliac stent placement 2008 [place], [place] vascular surgery Obesity, unspecified 08/24/2009 Overview: This patient's BMI has been calculated and is above average, and BMI management plan is completed. General patient education discussion including: obesity- related excess mortality, weight loss link to reduction of risk factors for cardiac and other diseases, importance of long- term maintenance treatment in weight loss documented as of this encounter (statuses as of 11/02/2019) Resolved Problems Problem Noted Date Resolved Date Uncontrolled type 2 diabetes mellitus without complication, 04/14/20192018 without long-term current use of insulin Tear of right rotator cuff 06/11/2018 01/27/2019 Overview: Added automatically from request for surgery [id number] Trochanteric bursitis of right hip 03/24/2018 12/17/2018 [...] 08/27/2012 12/17/2018 Overview: Left segmental sigmoid resection [facility] 1994 [facility] Recurrence yearly ciprofloxacin prescription empirically Colonoscopy negative 2010 documented as of this encounter (statuses as of 11/02/2019) Immunizations Name Administration Dates Next Due Depo Medrol (40mg) 02/25/2015, 06/15/2014 Influenza (IM) Preservative Free 08/21/2018, 07/26/2018, 08/25/2017 [...] Sign Reading Time Taken Comments Blood Pressure 142/80 11/02/2019 11:36 AM EST Pulse 83 11/02/2019 11:36 AM EST Temperature - - Respiratory Rate - - Oxygen Saturation 94% 11/02/2019 11:36 AM EST Inhaled Oxygen Concentration - - Weight 86.3 kg (190 lb 3.2 oz) 11/02/2019 11:36 AM EST Height 160 cm (5' 3") 11/02/2019 11:36 AM EST Body Mass Index 33.69 11/02/2019 11:36 AM EST documented in this encounter Patient Instructions Patient InstructionsLuis Kinsey MD - 11/02/2019 11:20 AM ESTPrednisone 5 days top prevent copd flare Tessalon perles three times daily As needed Blood test in November There are many over the counter cough medications. I recommend the followin. Robitussin DM 2. Mucinex DM 3. Dayquil and Nyquil.Electronically signed by Luis Kinsey MD at 2018 11:58 AM EST documented in this encounter Progress Notes Luis Kinsey MD - 11/02/2019 11:20 AM EST SUBJECTIVE: Fred Cameron is a 74-y.o. male who complains of coryza, congestion, swollen glands, post nasal drip and dry cough for 2 days. He denies a history of chest pain and wheezing and denies a history of asthma. He does have copd and he notes mild shortness of breath last 1 days Patient does not smoke cigarettes. OBJECTIVE: He appears well, vital signs are as noted. Ears normal. Throat and pharynx normal. Neck supple. Noadenopathy in the neck. Nose is congested. Sinuses non tender. The chest is clear, without wheezes or rales. ASSESSMENT: viral upper respiratory illness History copd PLAN: Symptomatic therapy suggested: push fluids, rest, return office visit prn if symptoms persist or worsen and use over the counter cough medications and tessalon perles . Lack of antibiotic effectivenessdiscussed with him. Call or return to clinic prn if these symptoms worsen or fail to improve as anticipated. Patient Instructions Prednisone 5 days top prevent copd flare Tessalon perles three times daily As needed Blood test in November There are many over the counter cough medications. I recommend the followin. Robitussin DM 2. Mucinex DM 3. Dayquil and Nyquil. documented in this encounter Plan of Treatment Date Type Specialty Care Team Description 04/19/2020 Orders Only Cardiology 04/28/2020 Office Visit Cardiology Ismael Marinelli MD [facility] [place] [id number] Name Type Priority Associated Diagnoses Order Schedule LIPID PROFILE Lab Routine Controlled type 2 diabetes 10 Occurrences starting mellitus without 11/02/2019 until 11/02/2020 complication, without long-term current use of insulin (HCC) Health Maintenance Due Date Last Done Comments ZOSTER IMMUNIZATION SERIES 1994 (1 of 2) PNEUMOCOCCAL 65+YRS (2 of 2 08/27/2013 08/27/2012, 08/25/2009 - PCV13) MEDICARE ANNUAL WELLNESS 02/07/2017 02/08/2016, 02/08/2016 VISIT Diabetic Eye Exam 05/28/2017 05/28/2016 FOOT EXAM 06/26/2018 06/26/2017, 06/26/2017, 02/08/2016, Additional history exists HEMOGLOBIN A1C 07/15/2019 04/14/2019, 12/17/2018, 08/28/2018, Additional history exists DEPRESSION SCREENING 12/17/2019 12/17/2018 LIPID DISORDER SCREENING 10/21/2020 10/21/2019, 12/29/2018, 05/22/2018, Additional history exists FALL RISK ASSESSMENT 11/02/2020 11/02/2019, 11/02/2019 Colonoscopy 08/27/2021 08/27/2011 AAA SCREENING/SURVEILLANCE Completed 08/27/2017 INFLUENZA VACCINE Completed 09/20/2019, 08/21/2018, 07/26/2018, Additional history exists HPV IMMUNIZATION SERIES Aged Out No longer eligible based on patient's age to complete this topic MENINGOCOCCAL VACCINE IMM Aged Out No longer eligible based on patient's age to complete this topic documented as of this encounter Goals Goal Patient Goal Associated Recent Patient-Stated? Author Type Problems Progress Blood Pressure Blood Pressure 142/80 No Amelie, < 140/90 (11/02/2019 Luis Feng, 11:36 AM EST) Note: This is an individualized treatment (blood pressure) goal for Fred Cameron: Displayed above (on the left) is your goal for blood pressure control. Your most recent blood pressure is also shown above, on the right. You should try to achieve blood pressures that are lower than your goal listed above (on the left). Weight increase vs. 18 mo CHF 11.2 (11/02/2019 11:36 AM Luis Fu MD min (lbs) < 5 EST) Note: This is an individualized treatment (congestive [...] 7.0 Diabetes 7.3 (04/14/2019 9:52 AM Luis Fu, EDT) Note: This is an individualized treatment (diabetes control, HgbA1C) goal for Fred Cameron: Displayed above is your progress towards your HgbA1C goal. Your goal is shown above (on the left); your most recent HgbA1C is shown on the right. Note that lower numbers are better. Weight loss vs. 18 mo Lifestyle 14.8 (11/02/2019 11:36 AM Luis Fu MD max (lbs) >= [...] and any After Visit Summaries. Consume a [id number]-fmobf-twrq diet Lifestyle Luis Fu MD Note: This [...] filedocumented in this encounter Visit Diagnoses Diagnosis Controlled type 2 diabetes mellitus without complication, without long-term current use of insulin (HCC) - Primary COPD with acute exacerbation (HCC) Obstructive chronic bronchitis with exacerbation Viral URI Acute upper respiratory infections of unspecified site documented in this encounter Insurance Payer Benefit Plan / Subscriber ID Effective Dates Phone Address Type Group AETNA MEDICARE AETNA MEDICARE xxxxxxxx 2017-Present [employer] ADVANTAGE ADVANTAGE Guarantor Name Account Type Relation to Date of Phone Billing Patient Address Fred Cameron Personal/Family 1945 [address] (Home) [place], [place] [phone] (Work) documented as of this encounter
[2019-12-28] MEDS ORDERED: Albuterol/Ipratropium NEB.SOL* Albuterol 2.5 MG/Ipratropium 0.5 MG 3 ML INH ONE (02:08)
--- NOTE | 2019-12-28 02:35 | ED ---
Shortness of Breath - HPI Summary HPI Summary: The patient is a 74 y/o male presenting to [facility] with a chief complaint of cough for the last 8 weeks with recent worsening of shortness of breath over the last few days. He reports a history of COPD with a chronic cough that has been more productive than usual. He endorses a mild fever without any chills, nausea, vomiting, or new diarrhea, although he has diarrhea chronically due to a diabetes medication he takes. He notes chest pain only with cough. Symptoms currently rated 3/10 in severity. PMHx: DM, CAD, CABG, HTN, PVD, HLD, COPD, diverticulosis. Former smoker, daily EtOH, no substance use. Medications reviewed. Allergies noted. - History of Current Complaint Chief Complaint: EDShortnessOfBreath Time Seen by Provider: 12/28/19 02:08 Hx Obtained From: Patient Onset/Duration: Gradual Onset, Lasting Days, Still Present Current Severity: Moderate Dyspnea At: Rest Aggravating Factors: Nothing Alleviating Factors: Nothing Associated Signs & Symptoms: Cough (Productive), Chest Pain w/Cough, Fever, Chills - Allergy/Home Medications Allergies/Adverse Reactions: Allergies Allergy/AdvReac Type Severity Reaction Status Date / Time codeine Allergy Dizziness Verified 12/28/19 01:46 propoxyphene [From [place]von] Allergy Dizziness Verified 12/28/19 01:46 Home Medications: Home Medications Albuterol HFA INHALER* [Ventolin HFA Inhaler*] 2 puff INH Q6HR PRN 12/28/19 [ History Confirmed 12/28/19] Spironolactone 25 mg PO DAILY 12/28/19 [History Confirmed 12/28/19] Torsemide TAB* [Demadex 20 MG*] 10 mg PO DAILY PRN 12/28/19 [History Confirmed 12/28/19] guaiFENesin [Mucinex] 2 tab PO DAILY 12/28/19 [History Confirmed 12/28/19] lisinopriL [Lisinopril] 20 mg PO DAILY 12/28/19 [History Confirmed 12/28/19] PMH/Surg Hx/FS Hx/Imm Hx Endocrine/Hematology History: Reports: Hx Diabetes Cardiovascular History: Reports: Hx Coronary Artery Disease, Hx Hypercholesterolemia, Hx Hypertension, Hx Peripheral Vascular Disease, Other Cardiovascular Problems/Disorders - hyperlipidemia Respiratory History: Reports: Hx Chronic Obstructive Pulmonary Disease (COPD) Denies: Hx Asthma, Hx Sleep Apnea GI History: Reports: Hx Diverticulosis - Colon surg 1994, Other GI Disorders - diverticulitis 1994 - partial colectomy Denies: Hx Gastroesophageal Reflux Disease Musculoskeletal History: Reports: Hx Arthritis - OA - right shoulder, Hx Bursitis Sensory History: Reports: Hx Cataracts - right eye, Hx Contacts or Glasses - glasses Denies: Hx Hearing Aid Opthamlomology History: Reports: Hx Cataracts - right eye, Hx Contacts or Glasses - glasses - Surgical History Surgical History: Yes Surgery Procedure, Year, and Place: left leg shunts placed - [facility]. partial colectomy -1994 -[facility]. CABGx5 2012 - [facility]. right eye cataract extraction with IOL - [facility] Hx Anesthesia Reactions: Yes - see note about nerve block jul 2018 Infectious Disease History: No Infectious Disease History: Reports: Hx Shingles - 2005 Denies: Traveled Outside the [place] in Last 30 Days - Family History Known Family History: Positive: Hypertension - Social History Alcohol Use: Daily Alcohol Amount: reports 2-3 beers per day Hx Substance Use: No Substance Use Type: Reports: None Hx Tobacco Use: Yes - OLD HX OF RT COLLAPSED LUNG Smoking Status (MU): Former Smoker Type: Cigarettes Amount Used/How Often: 2 ppd for 40 yrs Have You Smoked in the Last Year: No - Additional Comments History Additional Comments: diabetes, coronary artery disease, CABG, hypertension, peripheral vascular disease, hyperlipidemia, COPD, diverticulosis Review of Systems - ROS Summary Review of Systems Summary: Home Medications Medication Instructions Recorded Confirmed Type Metoprolol Succinate [Toprol Xl] 25 mg PO QAM 06/04/16 12/28/19 History Acetaminophen/Diphenhydramine 2 tab PO BEDTIME 09/02/18 12/28/19 History [Acetaminophen Pm Caplet] Aspirin 81 mg CHEW TAB* [Aspirin 81 mg PO QAM 09/02/18 12/28/19 History Low Dose TAB*] Atorvastatin* [Lipitor*] 80 mg PO QAM 09/02/18 12/28/19 History glipiZIDE TAB* [Glucotrol TAB*] 5 mg PO BID 09/02/18 12/28/19 History Albuterol HFA INHALER* [Ventolin 2 puff INH Q6HR PRN 12/28/19 12/28/19 History HFA Inhaler*] Spironolactone 25 mg PO DAILY 12/28/19 12/28/19 History Torsemide TAB* [Demadex 20 MG*] 10 mg PO DAILY PRN 12/28/19 12/28/19 History guaiFENesin [Mucinex] 2 tab PO DAILY 12/28/19 12/28/19 History lisinopriL [Lisinopril] 20 mg PO DAILY 12/28/19 12/28/19 History Positive: Fever. Negative: Chills Positive: Chest Pain - related to cough Positive: Shortness Of Breath, Cough Negative: Vomiting, Diarrhea, Nausea All Other Systems Reviewed And Are Negative: Yes Physical Exam - Summary Physical Exam Summary: General: Well-developed, Obese elderly male. Mildly ill-appearing. Mild respiratory distress. HEENT: Normocephalic, Atraumatic. Eyes: Conjuctiva normal, PERRL. Oropharynx: Clear, mucous membranes moist, (-) exudates. Neck: Soft, FROM, (-) lymphadenopathy, (-) thyromegaly, (-) JVD. Cardiovascular: Irregularly irregular, (-) murmur. Lungs: Intermittent cough, Very diminished breath sounds bilaterally, Bibasilar crackles, (+) tight wheezes throughout, (-) rales, (-) rhonchi. Abdomen: Soft, non-tender, non-distended, (-) organomegaly, normal bowel sounds. Back: (-) CVA tenderness Extremities: 1+ Pitting edema. Skin: Warm, dry, (-) rash. Neuro: Alert and oriented x3, moves all extremities equally. No ataxia. No gait disturbance. No sensory deficit. No amnesia. Psychiatric: Mood normal, affect normal. Triage Information Reviewed: Yes Vital Signs On Initial Exam: Initial Vitals Temp Pulse Resp BP Pulse Ox 98.7 F 118 40 208/110 80 12/28/19 01:44 12/28/19 01:44 12/28/19 01:44 12/28/19 01:44 12/28/19 01:44 Vital Signs Reviewed: Yes Procedures - Sedation Patient Received Moderate/Deep Sedation with Procedure: No Diagnostics - Vital Signs Vital Signs Temp Pulse Resp BP Pulse Ox 12/28/19 02:21 102 26 98 12/28/19 02:00 109 39 90 12/28/19 01:58 112 33 178/115 90 12/28/19 01:57 108 32 92 12/28/19 01:44 98.7 F 118 40 208/110 80 - Laboratory Result Diagrams: 12/29/19 05:32 12/29/19 05:32 Lab Statement: Any lab studies that have been ordered have been reviewed, and results considered in the medical decision making process. - Radiology CXR Radiology Interpretation Completed By: ED Physician Summary of Radiographic Findings: Increased interstitial markings consistent with CHF. Left lower lobe pneumonia. ED physician has reviewed and interpreted this report. Pending official read. - EKG 0242 Cardiac Rate: Other Rate - 103 BPM EKG Rhythm: Atrial Flutter EKG Comparison: Other - New atrial flutter since prior in 2012 Summary of EKG Findings: EKG at 0242 reveals atrial flutter with rate of 103 BPM , no STEMI. This EKG was reviewed and interpreted by Dr. Cruz. 0629 Cardiac Rate: NL - 93 BPM EKG Rhythm: Sinus Rhythm Summary of EKG Findings: EKG at 0242 reveals sinus rhythm with rate of 93 BPM, no STEMI. This EKG was reviewed and interpreted by Dr. Cruz. Re-Evaluation - Re-Evaluation First Eval Re-Evaluation Time: 02:50 Comment: Diltiazem given for HR just above 100 BPM. He appears to be in failure with bibasilar crackles in lungs, COPD. Breathing treatments and steroids for wheezing. Second Eval Re-Evaluation Time: 03:00 Comment: First trop of 0.01. Patient on continuous nebs. Patient likely in CHF. Third Eval Re-Evaluation Time: 04:00 Change: Improved Comment: Patient states he has never been in atrial flutter or atrial fibrillation. He is urinating and feeling better after medications. Fourth Eval Re-Evaluation Time: 05:00 Comment: Patient administered Tylenol, plan for repeat troponin, will also start on antibiotics for PNA Fifth Eval Re-Evaluation Time: 05:45 Comment: I discussed results and plan for admission. Course/Dx - Course Course Of Treatment: 74 year old male presents with cough, sob. complicated medical history. known copd, given Solu-Medrol, Duoneb, Albuterol. has crackles , swelling, elevated bnp, given lasix for chf. Diltiazem given as patient appears to be in afib/aflutter for the first time. Tylenol given for fever. patient referred to hospitalist for admission. - Diagnoses Provider Diagnoses: CHF (congestive heart failure), COPD (chronic obstructive pulmonary disease), Hypoxia, Lower lobe pneumonia - Physician Notifications Discussed Care of Patient With: Eliana Rodgers - hospitalist Time Discussed With Above Provider: 05:20 Instructed by Provider To: Other - I discussed the patients case with Dr. Rodgers, who accepts the patient for admission. Discharge ED - Sign-Out/Discharge Documenting (check all that apply): Patient Departure - Patient accepted for admission by Dr. Rodgers. - Discharge Plan Condition: Good Disposition: ADMITTED TO [facility] - Billing Disposition and Condition Condition: GOOD Disposition: Admitted to [facility] - Attestation Statements Document Initiated by Desi: Yes Documenting Scribe: Carlene Lombardi Provider For Whom Desi is Documenting (Include Credential): Dr. Susan Cruz MD Scribe Attestation: Carlene Gray scribed for Dr. Susan Cruz MD on 12/31/19 at 1930. Scribe Documentation Reviewed: Yes Provider Attestation: The documentation as recorded by the Carlene oconnor accurately reflects the service I personally performed and the decisions made by me, Dr. Susan Cruz MD Status of Desi Document: Viewed
[2019-12-28] MEDS ORDERED: methylPREDNISolone 125 MG* 2 ML VIAL IV ONE (02:48)
[2019-12-28] MEDS ORDERED: Furosemide IV* 10 MG/ML 10 ML VIAL (100 MG) IV ONE (02:50)
[2019-12-28] MEDS ORDERED: Diltiazem IV push/loading dose 5 MG/ML 5 ML vial (25 mg) IV SLOW PU ONE (02:51)
[2019-12-28] MEDS ORDERED: Albuterol 0.5% CONC NEB.SOL* 5 MG/ML 20 ml BOT INH ONE (03:04)
[2019-12-28 03:13] LABS: ABS Basophils 0.1 10^3/ul (0-0.2); ABS Monocytes 0.7 10^3/ul (0-0.8); ABS Neutrophils 9.5 10^3/ul (1.5-7.7); Eosinophil % 0.3 %; Hematocrit 38 % (42-52); Hemoglobin 12.7 g/dL (14.0-18.0); Lymphocyte % 8.7 %; Mean Corpuscular HGB Conc 34 g/dL (31-36); Mean Corpuscular Hemoglobin 31 pg (27-31); Mean Corpuscular Volume 92 fL (80-94); Mean Platelet Volume 8.5 fL (7.4-10.4); Platelet Count 142 10^3/uL (150-450); Red Blood Count 4.12 10^6 /uL (4.18-5.48); Red Cell Distribution Width 16 % (10-15); White Blood Count 11.3 10^3/uL (3.5-10.8)
[2019-12-28] MEDS ORDERED: Albuterol (2.5 MG) 0.5 % CONC 2.5 MG/0.5 ML NEB.SOLN (ICU and ED only) INH ONE (03:14)
[2019-12-28 03:18] LABS: INR 1.09 (0.82-1.09)
[2019-12-28 03:32] LABS: Albumin/Globulin Ratio 1.2 (1-3); BUN/Creatinine Ratio 11.6 (8-20); Calcium 8.9 mg/dL (8.6-10.3); EGFR African American 104.9 (>60); EGFR Non-African American 86.7 (>60); Globulin 3.3 g/dL (2-4); Total Bilirubin 1.4 mg/dL (0.2-1.0); Total Protein 7.3 g/dL (6.4-8.9)
[2019-12-28 03:33] LABS: Troponin I 0.01 ng/mL (<0.03)
[2019-12-28] MEDS ORDERED: Acetaminophen TAB* 325 MG PO ONE (05:03)
[2019-12-28] MEDS ORDERED: cefTRIAXone(*) 2 GM in NS 0.9% 100 ML* 100 ML IVPB ONE (05:27)
[2019-12-28] MEDS ORDERED: Acetaminophen TAB* 325 MG PO PRN (05:46)
[2019-12-28] MEDS ORDERED: Albuterol/Ipratropium NEB.SOL* Albuterol 2.5 MG/Ipratropium 0.5 MG 3 ML INH PRN (05:46)
[2019-12-28] MEDS ORDERED: Albuterol HFA INHALER* 8 gm MDI INH PRN (05:48)
[2019-12-28] MEDS ORDERED: Torsemide TAB* 20 MG PO PRN (05:55)
--- NOTE | 2019-12-28 05:57 | ADMNOTE ---
Subjective Interval History: This s my HP 74 yo male with hx of cadiomyoapthy, COPD presented with shortness of breath. He has been having chronic cough for weeks. He saw his PCP 7 weeks and was treated with abx. He said he never got better and he slowly kept getting worse. He developed a low grade fever a few days ago and yesterday he felt very short of breath which is ehy he came to the ED. Pt was hypoxemic on arrival and placed on 3l NC. His CXR shows a RML PNA and some congestion. He had mild leukocytosis. He received abx and IV lasix. Family History: Unchanged from Admission Social History: Unchanged from Admission Past Medical History: Unchanged from Admission Review of Systems - Measurements Intake and Output: Intake and Output Last 24 Hours 12/25/19 12/26/19 12/27/19 12/28/19 06:59 06:59 06:59 06:59 Weight 182 lb - Review of Systems Constitutional Symptoms: Positive: Weakness, Fatigue, Fever Negative: Weight Gain, Weight Loss, Night Sweats, Unexplained Falls, Other Dermatology: Negative: Normal, Rash, Skin Lesions, Cancer, Skin Lumps, Other HEENT: Negative: Normal, Change in Hearing, Vertigo, Dental Problems, Tinnitus, Sinus Problem, Other Eyes: Negative: Normal, Change in Vision, Double Vision, Eye Pain, Glaucoma, Cataract, Contacts or Glasses, Other Thyroid: Negative: Normal, Goiter, Thyroid Nodule, Cold Intolerance, Heat Intolerance , Sweatiness, Tremor, Frequent Defecation, Constipation, Palpitations, Primary Hypothyroidism, Primary Hyperthyroidism, Weight Loss, Weight Gain, Change in Skin/Hair, Change in Menstruation, Radiation Exposure, Other Pulmonary: Positive: Cough, Respiratory Distress, Shortness of Breath Cardiology: Negative: Normal, Chest Pain, Shortness of Breath, Palpitations, Swelling of Ankles, Peripheral Vascular Dis, Edema, Faintness, Syncope, Claudication, Proximal NocturnalDyspnea, Orthopnoea, Other Gastroenterology: Negative: Normal, Abdominal Pain, Nausea, Vomiting, Anorexia, Indigestion, Difficulty Swallowing, Heartburn, Constipation, Diarrhea, Blood in Stools, Change in Bowel Habits, Haematemesis, Melena, Other Musculoskeletal: Negative: Joint Pain, Joint Stiffness, Arthritis, Osteoporosis, Low Back Pain , Sciatica, Joint Deformities, Kyphoscoliosis, Other Endocrinology: Negative: Normal, Thyroid Problems, Adrenal Problems, Gonadal Problems, Family Hx Endocrine Disorders, Obesity, Diabetes Mellitus, Hyperglycemia, Hx Hypoglycemia, Diabetic Foot Ulcers, Calluses, Hirsutism, Menstrual Abnormalities , Polydipsia, Polyuria, Gonadal Problems, Gynecomastia, Pituitary disease, Other Neurology: Negative: Normal, Headache, Migraines, Change in Vision, Diplopia, Dizziness , Change in Balancing, Change in Coordination, Change in Memory, Change in Speech, Change in Sphincter Function, Change in Walking, Numbness\Paresthesiae, Unexplained Weakness, Hx of Stroke\TIA, Hx of Seizures, Other Objective Active Medications: Acetaminophen (Tylenol Tab*) 650 mg PO Q6H PRN PRN Reason: MILD PAIN or TEMP > 100.4 Albuterol (Ventolin Hfa Inhaler*) 2 puff INH Q6HR PRN PRN Reason: WHEEZING Albuterol/Ipratropium (Duoneb (Albuterol 2.5 Mg/Ipratropium 0.5 Mg)) 1 neb INH [id number] AWAKE PRN PRN Reason: sob/wheexing Aspirin (Aspirin 81 Mg Chew Tab*) 81 mg PO QAM [facility] Atorvastatin Calcium (Lipitor*) 80 mg PO QAM [facility] Heparin Sodium (Porcine) (Heparin Vial(*)) 5,000 units SUBCUT Q8HR [facility] Metoprolol Succinate (Toprol Xl Tab*) 25 mg PO QAM [facility] Non-Formulary Medication (Lisinopril [Lisinopril]) 20 mg PO DAILY [facility] Spironolactone (Aldactone Tab*) 25 mg PO DAILY [facility] Torsemide (Demadex*) 10 mg PO DAILY PRN PRN Reason: leg swelling Ambulatory Orders Metoprolol Succinate [Toprol Xl] 25 mg PO QAM 06/04/16 Acetaminophen/Diphenhydramine [Acetaminophen Pm Caplet] 2 tab PO BEDTIME 09/02 Aspirin 81 mg CHEW TAB* 81 mg PO QAM 09/02/18 Atorvastatin* [Lipitor 80 MG*] 80 mg PO QAM 09/02/18 glipiZIDE TAB* [Glucotrol TAB*] 5 mg PO BID 09/02/18 Albuterol HFA INHALER* [Ventolin HFA Inhaler*] 2 puff INH Q6HR PRN 12/28/19 Spironolactone 25 mg PO DAILY 12/28/19 Torsemide TAB* [Demadex 20 MG*] 10 mg PO DAILY PRN 12/28/19 guaiFENesin [Mucinex] 2 tab PO DAILY 12/28/19 lisinopriL [Lisinopril] 20 mg PO DAILY 12/28/19 Vital Signs - 8 hr 12/28/19 12/28/19 12/28/19 01:44 01:57 01:58 Temperature 98.7 F Pulse Rate 118 108 112 Respiratory 40 32 33 Rate Blood Pressure 208/110 178/115 (mmHg) O2 Sat by Pulse 80 92 90 Oximetry 12/28/19 12/28/19 12/28/19 02:00 02:21 02:27 Temperature Pulse Rate 109 102 Respiratory 39 26 Rate Blood Pressure 177/85 (mmHg) O2 Sat by Pulse 90 98 Oximetry 12/28/19 12/28/19 12/28/19 03:00 03:12 03:22 Temperature Pulse Rate 94 102 102 Respiratory 30 31 16 Rate Blood Pressure 161/80 (mmHg) O2 Sat by Pulse 89 91 96 Oximetry 12/28/19 12/28/19 12/28/19 03:58 04:00 04:28 Temperature Pulse Rate 106 102 99 Respiratory 31 31 30 Rate Blood Pressure 152/69 123/62 (mmHg) O2 Sat by Pulse 96 96 89 Oximetry 12/28/19 12/28/19 12/28/19 04:57 04:58 05:00 Temperature 99.9 F Pulse Rate 99 99 Respiratory 34 22 Rate Blood Pressure 129/66 (mmHg) O2 Sat by Pulse 88 89 Oximetry 12/28/19 05:28 Temperature Pulse Rate 96 Respiratory 34 Rate Blood Pressure 124/68 (mmHg) O2 Sat by Pulse 87 Oximetry Oxygen Devices in Use Now: Nasal Cannula Eyes: PERRLA Ears/Nose/Mouth/Throat: Mucous Membranes Moist Neck: NL Appearance and Movements; NL JVP, Trachea Midline Respiratory: - - crackles Cardiovascular: NL Sounds; No Murmurs; No JVD, No Edema Abdominal: NL Sounds; No Tenderness; No Distention Lymphatic: No Cervical Adenopathy Extremities: - - 2+ edema Skin: No Rash or Ulcers, No Nodules or Sclerosis Neurological: Alert and Oriented x 3 Result Diagrams: 12/28/19 03:02 12/28/19 03:02 Assess/Plan/Problems-Billing Assessment: - Patient Problems (1) CAP (community acquired pneumonia) Current Visit: Yes Status: Acute Code(s): J18.9 - PNEUMONIA, UNSPECIFIED ORGANISM SNOMED Code(s): 114247777 Comment: presenting with fever, cough, SOB, CXR showed right middle lobe PNA blood cx drawn azithro and ceftriaxone (2) DM2 (diabetes mellitus, type 2) Current Visit: Yes Status: Acute Comment: insulin meal coverage FS POC diabetic diet (3) COPD (chronic obstructive pulmonary disease) Current Visit: Yes Status: Acute Code(s): J44.9 - CHRONIC OBSTRUCTIVE PULMONARY DISEASE, UNSPECIFIED SNOMED Code(s): 21891135 Comment: COPD exacerbation Duonebs, prednisone daily abx (4) Atrial flutter Current Visit: Yes Status: Acute Code(s): I48.92 - UNSPECIFIED ATRIAL FLUTTER SNOMED Code(s): 5231049 Comment: pt was in flutter when he arrived in the ED, he was given diltiazem now back in sinus not sure if this is new, He does not know if he has a hx of arrhythmia (5) Cardiomyopathy Current Visit: Yes Status: Acute Code(s): I42.9 - CARDIOMYOPATHY, UNSPECIFIED SNOMED Code(s): 89660389 Comment: hx of CAD with cardiomyopathy No records on file, pt normally goes to [place] resume home medications (6) Full code status Current Visit: Yes Status: Acute Code(s): Z78.9 - OTHER SPECIFIED HEALTH STATUS SNOMED Code(s): 961530777 (7) DVT prophylaxis Current Visit: Yes Status: Acute Code(s): Z29.9 - ENCOUNTER FOR PROPHYLACTIC MEASURES, UNSPECIFIED SNOMED Code(s): 263530470 Comment: heparin sc
[2019-12-28] MEDS: Heparin VIAL(*) 5000 UNITS/ML VIAL (FIVE THOUSAND) SUBCUT SCH ×3 (06:07→21:13)
[2019-12-28] MEDS ORDERED: Torsemide TAB 10 MG PO PRN (06:37)
[2019-12-28] MEDS ORDERED: Dextrose 50% Syringe 50 ML* 25 GM/50 ML SYRINGE IV PUSH PRN (06:49)
[2019-12-28] MEDS: Azithromycin 500 mg/250 ml NS 500 MG/250 ML BAG IVPB SCH (07:36)
[2019-12-28 09:11] LABS: Influenza A Molecular Negative (Negative); Influenza B Molecular Negative (Negative)
[2019-12-28] MEDS: Insulin LISPRO* 1 UNITS UNIT SUBCUT SCH ×4 (09:49→21:13)
[2019-12-28] MEDS: Aspirin 81 mg CHEW TAB* 81 MG TAB.CHEW PO SCH (09:50)
[2019-12-28] MEDS: Lisinopril TAB* 10 MG PO SCH (09:50)
[2019-12-28] MEDS: Spironolactone TAB* 25 MG PO SCH (09:50)
[2019-12-28] MEDS: Atorvastatin* 80 MG TAB PO SCH (09:51)
[2019-12-28] MEDS: Metoprolol Succinate XL TAB* 25 MG PO SCH (09:51)
--- NOTE | 2019-12-28 14:26 | PN ---
Subjective Date of Service: 12/28/19 Interval History: Mr. Cameron is feeling better today. Respiratory symptoms are significant improved since arrival to the ED. Some resting SOB and frequent productive cough with brown sputum. Denies CP. Nursing reports hyperglycemia. Family History: Unchanged from Admission Social History: Unchanged from Admission Past Medical History: Unchanged from Admission Objective Active Medications: Acetaminophen (Tylenol Tab*) 650 mg PO Q6H PRN MILD PAIN or TEMP > 100.4 Albuterol (Ventolin Hfa Inhaler*) 2 puff INH Q6HR PRN WHEEZING Albuterol/Ipratropium (Duoneb (Albuterol 2.5 Mg/Ipratropium 0.5 Mg)) 1 neb INH [id number] AWAKE PRN sob/wheexing Aspirin (Aspirin 81 Mg Chew Tab*) 81 mg PO QAM [facility] Atorvastatin Calcium (Lipitor*) 80 mg PO QAM [facility] Dextrose (D50w Syringe 50 Ml*) 12.5 gm IV PUSH .FOR FS < 60 - SS PRN FS < 60 Glipizide (Glucotrol Tab*) 5 mg PO BID [facility] Heparin Sodium (Porcine) (Heparin Vial(*)) 5,000 units SUBCUT Q8HR [facility] Azithromycin (Zithromax 500 Mg/250 Ml) 500 mg in 250 mls @ 250 mls/hr IVPB Q24H [facility] Ceftriaxone Sodium 1 gm/ (Sodium Chloride) 50 mls @ 100 mls/hr IVPB Q24H [facility] Insulin Human Lispro (Humalog*) 0 units SUBCUT ACHS [facility]; Protocol Lisinopril (Prinivil Tab*) 20 mg PO DAILY [facility] Metoprolol Succinate (Toprol Xl Tab*) 25 mg PO QAM [facility] Prednisone (Deltasone 10 Mg Tab) 30 mg PO DAILY [facility] Spironolactone (Aldactone Tab*) 25 mg PO DAILY [facility] Torsemide (Torsemide) 10 mg PO DAILY PRN leg swelling Vital Signs - 8 hr 12/28/19 12/28/19 12/28/19 06:28 06:58 07:00 Temperature Pulse Rate 92 89 88 Respiratory 33 28 25 Rate Blood Pressure 125/69 133/73 (mmHg) O2 Sat by Pulse 90 90 90 Oximetry 12/28/19 12/28/19 12/28/19 07:28 08:02 08:20 Temperature 98.8 F 97.8 F Pulse Rate 87 87 91 Respiratory 26 25 18 Rate Blood Pressure 126/64 126/64 168/76 (mmHg) O2 Sat by Pulse 92 92 95 Oximetry 12/28/19 11:48 Temperature 97.8 F Pulse Rate 81 Respiratory 18 Rate Blood Pressure 138/51 (mmHg) O2 Sat by Pulse 97 Oximetry Oxygen Devices in Use Now: Nasal Cannula - 3L Appearance: Elderly male sitting in bed, dyspneic, but in NAD Ears/Nose/Mouth/Throat: Mucous Membranes Moist Neck: NL Appearance and Movements; NL JVP, Trachea Midline Respiratory: Symmetrical Chest Expansion and Respiratory Effort, - - Diminished throughout Cardiovascular: NL Sounds; No Murmurs; No JVD, RRR Abdominal: NL Sounds; No Tenderness; No Distention Extremities: No Edema Neurological: Alert and Oriented x 3 Lines/Tubes/Other Access: Clean, Dry and Intact Peripheral IV Nutrition: Taking PO's Result Diagrams: 12/28/19 03:02 12/28/19 03:02 Assess/Plan/Problems-Billing Assessment: Mr. Cameron is a 74 yo M with PMH of HTN, CAD with CABG in 2002, COPD, HLD, PAD , CVA in 2002, DM2; who presented to the ED with c/o SOB and was found to have pneumonia. - Patient Problems (1) CAP (community acquired pneumonia) Code(s): J18.9 - PNEUMONIA, UNSPECIFIED ORGANISM Comment: - Presented with fever, cough, SOB - CXR showing small RLL infiltrate - Pending Strep pneumo and Legionella urine antigens - Continue ceftriaxone, azithromycin (2) Acute respiratory failure with hypoxia Code(s): J96.01 - ACUTE RESPIRATORY FAILURE WITH HYPOXIA Comment: - Requiring 3L to maintain saturations - Secondary to pneumonia - Wean as tolerated - Continue prednisone, ceftriaxone, azithromycin (3) COPD exacerbation Code(s): J44.1 - CHRONIC OBSTRUCTIVE PULMONARY DISEASE W (ACUTE) EXACERBATION Comment: - Secondary to pneumonia - Continue prednisone, nebs (4) Atrial flutter Code(s): I48.92 - UNSPECIFIED ATRIAL FLUTTER Comment: - New onset upon arrival to the ED, likely stress response d/t sepsis - Resolved with diltiazem x1 - Monitor on tele (5) Sepsis Comment: - Resolved - Met criteria on admission with tachycardia and tachypnea; source is pneumonia (6) DM2 (diabetes mellitus, type 2) Comment: - Hyperglycemic into the 400s - Continue Lispro SS; resume glipizide (7) CAD (coronary artery disease) Code(s): I25.10 - ATHSCL HEART DISEASE OF [place] CORONARY ARTERY W/O ANG PCTRS Comment: - No acute concerns - Continue aspirin, atorvastatin, metoprolol (8) HTN (hypertension) Code(s): I10 - ESSENTIAL (PRIMARY) HYPERTENSION Comment: - Hypertensive on admission, now normotensive - Continue lisinopril, metoprolol, spironolactone (9) DVT prophylaxis Code(s): Z29.9 - ENCOUNTER FOR PROPHYLACTIC MEASURES, UNSPECIFIED Comment: - Heparin SQ (10) Full code status Code(s): Z78.9 - OTHER SPECIFIED HEALTH STATUS Comment: Status and Disposition: Inpatient. Anticipate d/c home when medically stable. Attending: Anna Sotelo
[2019-12-28] MEDS: glipiZIDE TAB* 5 MG PO SCH (21:13)
[2019-12-29] MEDS: Benzonatate CAP* 100 MG PO PRN ×2 (01:17→08:27)
[2019-12-29] MEDS: Heparin VIAL(*) 5000 UNITS/ML VIAL (FIVE THOUSAND) SUBCUT SCH ×2 (05:40→17:11)
[2019-12-29] MEDS ORDERED: cefTRIAXone(*) 1 GM in NS 0.9% 50 ML* 50 ML IVPB SCH (06:00)
[2019-12-29 06:03] LABS: ABS Lymphocytes 1.2 10^3/ul (1.0-4.8); ABS Monocytes 0.8 10^3/ul (0-0.8); Hematocrit 34 % (42-52); Hemoglobin 11.5 g/dL (14.0-18.0); Lymphocyte % 10.2 %; Mean Corpuscular HGB Conc 34 g/dL (31-36); Mean Corpuscular Hemoglobin 31 pg (27-31); Mean Corpuscular Volume 92 fL (80-94); Mean Platelet Volume 8.9 fL (7.4-10.4); Platelet Count 153 10^3/uL (150-450); Red Blood Count 3.68 10^6 /uL (4.18-5.48); Red Cell Distribution Width 16 % (10-15); White Blood Count 12.1 10^3/uL (3.5-10.8)
[2019-12-29 06:25] LABS: Calcium 8.8 mg/dL (8.6-10.3)
[2019-12-29 06:31] LABS: BUN/Creatinine Ratio 31.6 (8-20)
[2019-12-29 06:37] LABS: Potassium 3.6 mmol/L (3.5-5.0)
[2019-12-29] MEDS: Spironolactone TAB* 25 MG PO SCH (08:27)
[2019-12-29] MEDS: glipiZIDE TAB* 5 MG PO SCH (08:27)
[2019-12-29] MEDS: Lisinopril TAB* 10 MG PO SCH (08:27)
[2019-12-29] MEDS: Aspirin 81 mg CHEW TAB* 81 MG TAB.CHEW PO SCH (08:27)
[2019-12-29] MEDS: Atorvastatin* 80 MG TAB PO SCH (08:28)
[2019-12-29] MEDS: Metoprolol Succinate XL TAB* 25 MG PO SCH (08:28)
[2019-12-29] MEDS: Insulin LISPRO* 1 UNITS UNIT SUBCUT SCH ×3 (08:32→17:16)
[2019-12-29] MEDS: Azithromycin 500 mg/250 ml NS 500 MG/250 ML BAG IVPB SCH (09:11)
[2019-12-29 15:56] VITALS: BP 144/63
--- NOTE | 2019-12-29 19:03 | DS ---
CC: Dr. Luis Kinsey * DISCHARGE SUMMARY: DATE OF ADMISSION: 12/28/19 DATE OF DISCHARGE: 12/29/19 PRIMARY CARE PROVIDER: Luis Kinsey MD ATTENDING PHYSICIAN: Shonna Cee MD * (dictated by THERESA Schwartz). PRIMARY DIAGNOSES: 1. Community-acquired pneumonia. 2. Acute hypoxic respiratory failure. 3. Chronic obstructive pulmonary disease exacerbation. 4. Sepsis. 5. Atrial flutter. SECONDARY DIAGNOSES: 1. Diabetes mellitus, insulin dependent. 2. Coronary artery disease. 3. Chronic obstructive pulmonary disease. 4. Hypertension. 5. Hyperlipidemia. STUDIES WHILE IN THE HOSPITAL: Chest x-ray, impression: Small right lung infiltrate. Postsurgical changes and findings suggestive of COPD. DISCHARGE MEDICATIONS: Home Medications: 1. Acetaminophen/diphenhydramine 2 tabs p.o. at bedtime. 2. Albuterol HFA inhaler 2 puff inhalation q.6 hours p.r.n. 3. Aspirin 81 mg p.o. daily. 4. Atorvastatin 80 mg p.o. daily. 5. Glipizide 5 mg p.o. b.i.d. 6. Guaifenesin 2 tabs p.o. daily. 7. Lisinopril 20 mg p.o. daily. 8. Metoprolol succinate 25 mg p.o. daily. 9. Spironolactone 25 mg p.o. daily. 10. Torsemide 10 mg p.o. daily p.r.n. leg swelling. New home medications: 1. Azithromycin 250 mg p.o. daily x3 days. 2. Benzonatate 200 mg p.o. t.i.d. p.r.n. cough. 3. Cefdinir 300 mg p.o. b.i.d. x5 days. 4. Prednisone 30 mg p.o. daily x3 days. HISTORY OF PRESENT ILLNESS/HOSPITAL COURSE: Mr. Cameron is a 74-year-old male with a past medical history of coronary artery disease, COPD, diabetes mellitus , insulin dependent, who presented to the ER on 10/26/19 and was admitted on 02/10 with complaints of 8 weeks of coughing without reported resolution. He was found to be hypoxemic on arrival and was started on nasal cannula. Chest x- ray showed right middle lobe pneumonia. He was noted to meet sepsis criteria with leukocytosis, tachypnea, and tachycardia. He subsequently admitted and started on ceftriaxone and azithromycin. He was placed on 3 L of oxygen. The patient improved throughout his stay. At that time of discharge, he was not requiring supplemental oxygen. He continued to receive treatment for right middle lobe community-acquired pneumonia. He was also started on a short burst of prednisone for COPD exacerbation. His tachycardia and tachypnea improved. As mentioned, he had a mild leukocytosis at admission, which increased a small amount to 12.1 by the time of discharge, this was likely due to use of steroid medication. The patient was noted to be tachycardic at admission. As mentioned, an EKG was obtained and appeared to show possible atrial flutter. The patient was given 10 mg IV diltiazem, which quickly converted him. It is suspected that the patient's arrhythmia was due to his pulmonary infection. He was placed on telemetry and remained in normal sinus rhythm throughout his stay. There were no further episodes of atrial flutter. At that time of discharge, the patient states that his cough is occasionally productive, but has decreased significantly since he started taking Tessalon Perles. He denies shortness of breath and does complain of occasional wheezing. He states that he is short of breath with exertion but notes no difficulty with ambulation without oxygen. The patient reports that for years he has had dyspnea with certain activity such as climbing hills, but is able to walk on flat or downhill with any concerns. He denies chest pain, shortness of breath, fever, chills, sweats, abdominal pain, nausea, vomiting, diarrhea, constipation, myalgias, arthralgias , headache, dizziness, lightheadedness. Mr. Cameron is stable for discharge. PHYSICAL EXAM: Vital Signs: Temperature 97.6 temporal, heart rate 75, respiratory rate 20, oxygen saturation 93% on room air, blood pressure 143/72. General: Mr. Cameron is a well-developed, well-nourished, obese, older white male, who is sitting up in bed. He appears to be in no acute distress. He is breathing comfortably without supplemental oxygen. He speaks in full sentences. HEENT: PERRL, EOMI. Visual arias are grossly intact. Sclerae are nonicteric without injection. Hearing is grossly intact. Oral mucous membranes are moist. There are no lesions. Pharynx is clear. Palate elevates symmetrically. Tongue is at midline. Cardiovascular: Regular rate and rhythm with S1, S2 present. No murmurs, rubs, clicks, or gallops. There is no JVD or peripheral edema. The patient has SARWAT hose in place. Pulmonary: Symmetrical chest expansion without the use of accessory muscles. The patient has diminished breath sounds throughout bilateral lung arias without wheeze rales or rhonchi. Abdomen: Obese, bowel sounds in all quadrants, soft, nontender to palpation. Musculoskeletal: Full range of motion without pain or deformities. Strength is 5/5 bilaterally. Neuro: The patient is awake. He is alert and oriented x3. Cranial nerves II through XII are grossly intact. He is able to move all of his extremities. His motor strength is 5/5 bilaterally in the upper and lower extremities. DISCHARGE PLAN: Mr. Cameron will be discharged to home. CONDITION: Good. DIET: 1. Heart healthy. 2. ADA/diabetic. ACTIVITY: As tolerated. MEDICATIONS: 1. Continue azithromycin and Cefdinir until prescription is finished. Start both medications tomorrow. 2. Continue prednisone 30 mg p.o. daily x3 days starting tomorrow. 3. Continue Tessalon Perles p.r.n. cough. EDUCATION: 1. Follow up with primary care provider in 4 to 7 days. 2. Return to the ER or nearest hospital for return or worsening of symptoms, wheeze or productive cough, shortness of breath, high fevers, chills, night sweats, return for chest pain or discomfort, dizziness, lightheadedness, loss of consciousness, or any other worrisome signs or symptoms. This is a summarized report of a complex medical history and hospital stay. For further details, please see the entire medical record. TIME SPENT: Approximately 35 minutes was spent on this discharge, greater than half that time was spent [id number] with the patient discussing discharge plans and instructions. THERESA SANTOS [id number]/[facility] #: [id number] ARY
[2019-12-30] MEDS ORDERED: cefTRIAXone(*) 1 GM in NS 0.9% 50 ML* 50 ML IVPB SCH (06:00)
== END 2019-12-29 18:34 | disposition home or self-care (01) | DRG 871 ==
LOC: ED 01:44 → MEDTELE 08:22
PROVIDERS: ADMIT Student in an Organized Health Care Education/Training Program; ATTEND Internal Medicine
DX: A41.9 Sepsis, unspecified organism (principal); J18.9 Pneumonia, unspecified organism; J96.01 Acute respiratory failure with hypoxia; J44.0 Chronic obstructive pulmonary disease with (acute) lower respiratory infection; I48.92 Unspecified atrial flutter; I42.9 Cardiomyopathy, unspecified; J44.1 Chronic obstructive pulmonary disease with (acute) exacerbation; E11.65 Type 2 diabetes mellitus with hyperglycemia; I25.10 Atherosclerotic heart disease of native coronary artery without angina pectoris; E11.51 Type 2 diabetes mellitus with diabetic peripheral angiopathy without gangrene; E78.00 Pure hypercholesterolemia, unspecified; I10 Essential (primary) hypertension; E78.5 Hyperlipidemia, unspecified; M19.011 Primary osteoarthritis, right shoulder; Z88.5 Allergy status to narcotic agent; Z88.8 Allergy status to other drugs, medicaments and biological substances; Z87.891 Personal history of nicotine dependence; Z95.1 Presence of aortocoronary bypass graft; Z79.82 Long term (current) use of aspirin; Z79.84 Long term (current) use of oral hypoglycemic drugs; Z79.899 Other long term (current) drug therapy
CPT/HCPCS: 36415; 71046; 80048; 80053; 82947; 83605; 83880; 84484; 85025; 85610; 87040; 87899; 93005; 96374; 96375; 99284; A9270-GY; J0456; J0696; J1644; J1940; J2930; J7512; J7611